=== PATIENT | female | born 1970 | race African-American/Black ===

== ENCOUNTER 2016-12-02 10:44 | Emergency (ER) | payer OTHER ==
[2016-12-02 11:10] VITALS: BP 131/70; PULSE 71; TEMP 98.3; BMI 25.5
[2016-12-02] MEDS ORDERED: ACETAMINOPHEN 325 MG TABLET (FP) PO ONE (11:37)
[2016-12-02] MEDS ORDERED: ACETAMINOPHEN 325 MG TABLET (FP) ONE (11:42)
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
== END 2016-12-02 13:09 | disposition home or self-care (01) ==
LOC: JERFT 10:44
DX: S16.1XXA Strain of muscle, fascia and tendon at neck level, initial encounter (principal); I10 Essential (primary) hypertension; V44.6XXA Car passenger injured in collision with heavy transport vehicle or bus in traffic accident, initial encounter; Y92.414 Local residential or business street as the place of occurrence of the external cause; Y93.89 Activity, other specified
CPT/HCPCS: 72050-TC; 84703; 99281-25

== ENCOUNTER 2017-02-16 08:57 | Day surgery (SDC) | payer OTHER ==
[2017-02-14 10:49] VITALS: BMI 26.6
[2017-02-16] MEDS ORDERED: LIDOCAINE HCL 1%, 10 MG/ML (20ML VIAL) ONE (09:39)
[2017-02-16] MEDS ORDERED: HEPARIN NA (PORCINE) 5,000 UNITS/ML 1ML VIAL ONE ×2 (09:39→10:38)
[2017-02-16] MEDS ORDERED: ONDANSETRON 4 MG/2 ML VIAL IVPUSH PRN (09:53)
[2017-02-16] MEDS ORDERED: oxyCODONE HCL 5 MG TABLET PO PRN (09:53)
[2017-02-16] MEDS ORDERED: MIDAZOLAM HCL 2 MG/2 ML SINGLE DOSE VIAL ONE ×2 (10:22)
[2017-02-16] MEDS ORDERED: ceFAZolin SODIUM 1 GM VIAL IVPB ONE (10:30)
[2017-02-16] MEDS ORDERED: ceFAZolin SODIUM 1 GM VIAL ONE (10:31)
[2017-02-16] MEDS ORDERED: LIDOCAINE HCL 1%, 10 MG/ML (50 mL VIAL) IJ ONE (10:35)
[2017-02-16] MEDS ORDERED: LIDOCAINE HCL 1%, 10 MG/ML (50 mL VIAL) INF ONE (10:35)
[2017-02-16] MEDS ORDERED: DEXAMETHASONE SOD PHOSPHATE 4 MG/1 ML VIAL ONE (10:41)
--- NOTE | 2017-02-16 10:56 | OP ---
Operative Note - Note: Operative Date: 02/16/17 Pre-Operative Diagnosis: stenosis right avf Operation: venogram,venoplasty right avf Findings: stenosis 70% in body of avf Post-Operative Diagnosis: Same as Pre-op Surgeon: Tanner Donaldson Anesthesia: Fractional Estimated Blood Loss (mls): 10 Operative Report Dictated: Yes
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
[2017-02-16 12:55] VITALS: PULSE 63; TEMP 97.6
[2017-02-16 15:56] VITALS: BP 90/60
--- NOTE | 2017-02-17 10:58 | OP ---
DATE OF OPERATION: 02/16/2017 PREOPERATIVE DIAGNOSIS: Stenosis, right arteriovenous fistula. POSTOPERATIVE DIAGNOSIS: Stenosis, right arteriovenous fistula. PROCEDURE: Venogram venoplasty of right arteriovenous fistula. SURGEON: Tanner Mosley MD ANESTHESIA: Fractional. BLOOD LOSS: 20 mL. INDICATIONS: The patient is a 42-year-old female who has a right AV fistula with a stenosis on preoperative ultrasound. It was decided that she would need a venogram. She came into ambulatory surgery. Patient was consented for the procedure understanding all risks, benefits, and alternatives, and then taken to the operating room. DESCRIPTION OF PROCEDURE: Once in the operating room, the area of the right arm was prepped and draped in a sterile surgical manner. We then injected 5 mL of lidocaine 1% at the proximal AV fistula above the anastomosis. We then took our micropuncture needle and punctured the right AV fistula. Micropuncture wire was inserted, and a traditional short 6-Macedonian sheath was inserted. Then, 3000 units of IV heparin were administered to the patient. We then shot a venogram by hand injection showing that the fistula was completely patent, but in the body of the fistula, there was about a 70% to 75% stenosis. We then placed a 0.035-floppy guidewire up into the central veins. We then used a 9 x 8 [place] balloon and performed venoplasty of the entire AV fistula from the upper arm all the way down to the anastomosis. Completion venogram showed that the fistula was now patent, there was good brisk flow, the central veins were patent, as well. At this point, we took a 4-0 Biosyn stitch and a figure-of-8 stitch was placed around our sheath, and the sheath was pulled. The area was wet and dried. A Dermabond was placed. The patient tolerated the procedure with no complications. Patient transferred to PACU in stable condition. TANNER MOSELY DO [id number]
== END 2017-02-16 14:00 | disposition home or self-care (01) ==
LOC: JASU-SURG 08:57
PROVIDERS: ATTEND Surgery Vascular Surgery
PROC: 057Y3ZZ Dilation of Upper Vein, Percutaneous Approach (ICD-10-PCS; principal; 2017-02-16 10:00)
DX: T82.858A Stenosis of other vascular prosthetic devices, implants and grafts, initial encounter (principal); I12.0 Hypertensive chronic kidney disease with stage 5 chronic kidney disease or end stage renal disease; N18.6 End stage renal disease
CPT/HCPCS: 36415; 76000-TC; 84132; 94760; J1644

== ENCOUNTER 2017-12-13 07:58 | Emergency (ER) | payer OTHER ==
[2017-12-13 08:17] VITALS: BP 150/75; PULSE 77; TEMP 98.4; BMI 27.3
--- NOTE | 2017-12-13 08:52 | PDOC ---
History of Present Illness - General Chief Complaint: Pain Stated Complaint: LT FOOT PAIN Time Seen by Provider: 12/13/17 08:43 History Source: Patient Exam Limitations: No Limitations - History of Present Illness Initial Comments: 12/13/17 09:55 Best Contact: PCP: Dr. Shannon Samaniego Pmhx: CRF/Gout Pshx: 2017/Right AV shunt, 2016/Uterus ablation, 2004: Laparoscopic cholecystectomy Allergies:NKDA LMP: None /ablation done 2016 47-year-old female presents to the ER complaining of pain to the plantar surface of her left foot. Patient states the pain is from her heel to her toes and is worse on weight-bear and alleviated minimally at rest. Patient states she noticed the pain for the past 3 days and has been taking Tylenol with minimal relief. Patient denies any injuries/trauma. Patient denies numbness or tingling sensation. Patient denies any other complaints. Past History - Past Medical History Allergies/Adverse Reactions: Allergies Allergy/AdvReac Type Severity Reaction Status Date / Time No Known Drug Allergies Allergy Verified 12/13/17 08:02 Home Medications: Ambulatory Orders Febuxostat [Uloric -] 80 mg PO HS 12/08/12 Magnesium Oxide 400 mg PO HS 12/08/12 Valsartan/Hydrochlorothiazide [Valsartan-Hctz 160-12.5 mg Tab] 1 each PO HS Anemia: Yes Asthma: Yes Cancer: No Cardiac Disorders: No CVA: No COPD: No CHF: No Dementia: No Diabetes: No Dialysis: No (pre dialysis, rt arm fistula, ckd , uromodulin storage disease) GI Disorders: Yes Disorders: No HTN: Yes Hypercholesterolemia: No Liver Disease: No Seizures: No Thyroid Disease: No - Surgical History Abdominal Surgery: Yes (uterine ablation) Appendectomy: No Cardiac Surgery: No Cholecystectomy: Yes Lung Surgery: No Neurologic Surgery: No Orthopedic Surgery: No - Suicide/Smoking/Psychosocial Hx Smoking Status: No Smoking History: Never smoked Have you smoked in the past 12 months: No Number of Cigarettes Smoked Daily: 0 Information on smoking cessation initiated: No Hx Alcohol Use: Yes (occas) Drug/Substance Use Hx: No Substance Use Type: None Hx Substance Use Treatment: No Review of Systems - Review of Systems Able to Perform ROS?: Yes Comments:: 12/13/17 09:57 CONSTITUTIONAL: Absent: fever, chills, diaphoresis, generalized weakness, malaise, loss of appetite Musculoskeletal: +pain to plantar surface of left foot Absent: myalgia, arthralgia, joint swelling SKIN: Absent: rash, itching, pallor HEMATOLOGIC/IMMUNOLOGIC: Absent: easy bleeding, easy bruising, lymphadenopathy, frequent infections ENDOCRINE: Absent: unexplained weight gain, unexplained weight loss, heat intolerance, cold intolerance Is the patient limited Swedish proficient: No *Physical Exam - Vital Signs Last Vital Signs Temp Pulse Resp BP Pulse Ox 98.4 F 77 18 150/75 100 12/13/17 08:03 12/13/17 08:03 12/13/17 08:03 12/13/17 08:03 12/13/17 08:03 - Physical Exam Comments: 12/13/17 09:58 GENERAL: Well developed, well nourished. Awake and alert. No acute distress. MUSCULOSKELETAL +left foot/pain to plantar surface 2 point sensation intact Normal range of motion at all joints. No bony deformities or tenderness. No CVA tenderness. EXTREMITIES: No cyanosis. No clubbing. No edema. No calf tenderness. SKIN: Warm and dry. Normal capillary refill. No rashes. No jaundice. Moderate Sedation - Procedure Monitoring Vital Signs: Vital Signs Temp Pulse Resp BP Pulse Ox 98.4 F 77 18 150/75 100 12/13/17 08:03 12/13/17 08:03 12/13/17 08:03 12/13/17 08:03 12/13/17 08:03 ED Treatment Course - RADIOLOGY Radiograph Interpretation: 12/13/17 09:59 xray left foot Negative obvious acute fracture or dislocation ? Osteophyte versus old fx to lat cuboid *DC/Admit/Observation/Transfer Diagnosis at time of Disposition: Plantar fasciitis of left foot - Discharge Dispostion Disposition: HOME Condition at time of disposition: Stable Decision to Admit order: No - Referrals Referrals: Chely Coleman MD [Staff Physician] - - Patient Instructions Printed Discharge Instructions: DI for Plantar Fasciitis Additional Instructions: Rest Elevate Follow up with the car rental deliverer Return to the ER for severe/persistent/worsening symptoms, extremity numbness/ tingling sensation. - Post Discharge Activity
== END 2017-12-13 09:42 | disposition home or self-care (01) ==
LOC: JER 07:58 → JERFT 07:58
DX: M72.2 Plantar fascial fibromatosis (principal); I12.0 Hypertensive chronic kidney disease with stage 5 chronic kidney disease or end stage renal disease; N18.6 End stage renal disease; J45.909 Unspecified asthma, uncomplicated; D64.9 Anemia, unspecified; Z95.828 Presence of other vascular implants and grafts
CPT/HCPCS: 73630-TC-LT; 99281-25

== ENCOUNTER 2018-04-30 12:59 | Emergency (ER) | payer OTHER ==
[2018-04-30 13:15] VITALS: BP 168/88; PULSE 78; TEMP 98.9; BMI 27.3
--- NOTE | 2018-04-30 13:32 | PDOC ---
History of Present Illness - General Chief Complaint: Pain Stated Complaint: ABSCESS Time Seen by Provider: 04/30/18 13:19 History Source: Patient Exam Limitations: No Limitations - History of Present Illness Initial Comments: CHIEF COMPLAINT: 47 y/o afebrile female with dental abscess that started yesterday. HISTORY OF PRESENT ILLNESS: patient states she has pain in her right upper mouth and swelling to right cheek. She denies fever. She has not seen a dentist in a long time. Vital signs on arrival are within normal limits. REVIEW OF SYSTEMS: GENERAL/CONSTITUTIONAL: No fever/chills. No weakness. No weight change. HEAD, EYES, EARS, NOSE AND THROAT: +painful tooth to right upper mouth and swelling to right side of face. No change in vision. No ear pain or discharge. No sore throat. MUSCULOSKELETAL: No joint or muscle swelling or pain. No neck or back pain. SKIN: No rash or easy bruising. NEUROLOGIC: No headache, vertigo, loss of consciousness, or loss of sensation. PHYSICAL EXAM: GENERAL: The patient is awake, alert, and fully oriented, in no acute distress. SHe is well appearing and ambulatory. HEAD: Normal with no signs of trauma. No mastoid TTP b/l. ENT: Pupils equal, round and reactive to light, extraocular movements intact, sclera anicteric, conjunctiva clear. Right upper 2nd molar very TTP with decay and surrounding gingivitis. Right side of cheek edematous but without erythema , warmth or streaking. No swelling to orbits or nose. EXTREMITIES: Normal range of motion, no edema. NEUROLOGICAL: Normal speech, normal gait. CN II-XII grossly intact. SKIN: Warm, dry, normal turgor, no rashes or lesions noted. Past History - Past Medical History Allergies/Adverse Reactions: Allergies Allergy/AdvReac Type Severity Reaction Status Date / Time No Known Drug Allergies Allergy Verified 04/30/18 13:15 Home Medications: Ambulatory Orders Febuxostat [Uloric -] 80 mg PO HS 12/08/12 Magnesium Oxide 400 mg PO HS 12/08/12 Valsartan/Hydrochlorothiazide [Valsartan-Hctz 160-12.5 mg Tab] 1 each PO HS Amoxicillin - [Amoxicillin 500mg Capsule -] 500 mg PO TID #21 capsule 10/07/18 Tramadol HCl 50 mg PO TID #12 tablet MDD 3 04/30/18 Anemia: Yes Asthma: Yes Cancer: No Cardiac Disorders: No CVA: No COPD: No CHF: No Dementia: No Diabetes: No Dialysis: Yes GI Disorders: Yes Disorders: No HTN: Yes Hypercholesterolemia: No Liver Disease: No Seizures: No Thyroid Disease: No - Surgical History Abdominal Surgery: No Appendectomy: No Cardiac Surgery: No Cholecystectomy: Yes Lung Surgery: No Neurologic Surgery: No Orthopedic Surgery: No - Suicide/Smoking/Psychosocial Hx Smoking Status: No Smoking History: Never smoked Have you smoked in the past 12 months: No Number of Cigarettes Smoked Daily: 0 Information on smoking cessation initiated: No Hx Alcohol Use: No Drug/Substance Use Hx: No Substance Use Type: Alcohol Hx Substance Use Treatment: No *Physical Exam - Vital Signs Last Vital Signs Temp Pulse Resp BP Pulse Ox 98.9 F 78 17 168/88 100 04/30/18 13:11 04/30/18 13:11 04/30/18 13:11 04/30/18 13:11 04/30/18 13:11 Medical Decision Making - Medical Decision Making A/P: 47 y/o female with an infected tooth in the right upper mouth with facial swelling. Will d/c with rx for amox and tramadol. Strongly encouraged her to f/u with the Urgent Care dentist in [place] today and return to the ER with any worsening or concerning symptoms. The patient verbalizes understanding of all instructions, has no further questions and is awaiting discharge. *DC/Admit/Observation/Transfer Diagnosis at time of Disposition: Dental abscess - Discharge Dispostion Disposition: HOME Condition at time of disposition: Good - Referrals - Patient Instructions Printed Discharge Instructions: DI for Tooth Decay Additional Instructions: Discharge Instructions: -you have a tooth abscess -A prescription for antibiotics and pain medication has been sent to your pharmacy -Please [facility] the [facility] [address] [place] [address] -Return to the ER with any worsening or concerning symptoms - Post Discharge Activity
[2018-04-30] MEDS ORDERED: AMOXICILLIN 500 MG CAPSULE (FP) PO ONE (13:38)
[2018-04-30] MEDS ORDERED: traMADol HCL 50 MG TABLET PO ONE (13:38)
[2018-04-30] MEDS ORDERED: AMOXICILLIN 250 MG CAPSULE ONE (13:41)
[2018-04-30] MEDS ORDERED: traMADol HCL 50 MG TABLET ONE (13:41)
== END 2018-04-30 13:44 | disposition home or self-care (01) ==
LOC: JERFT 12:59
DX: K04.7 Periapical abscess without sinus (principal); I12.0 Hypertensive chronic kidney disease with stage 5 chronic kidney disease or end stage renal disease; N18.6 End stage renal disease; N17.8 Other acute kidney failure; Z99.2 Dependence on renal dialysis; Z87.09 Personal history of other diseases of the respiratory system; Z86.2 Personal history of diseases of the blood and blood-forming organs and certain disorders involving the immune mechanism
CPT/HCPCS: 99281-25

== ENCOUNTER 2021-02-24 00:18 | Emergency (ER) | payer OTHER ==
[2021-02-24 00:49] VITALS: TEMP 98.2; BMI 29.0
[2021-02-24 02:19] VITALS: BP 122/89; PULSE 75
== END 2021-02-24 02:15 | disposition home or self-care (01) ==
LOC: JER 00:18
DX: M25.571 Pain in right ankle and joints of right foot (principal); Y93.01 Activity, walking, marching and hiking; M76.61 Achilles tendinitis, right leg
CPT/HCPCS: 73610-TC-RT-FY; 73630-TC-RT-FY; 99283-25; G0463-25

== ENCOUNTER 2021-03-10 20:51 | Emergency (ER) | payer OTHER ==
[2021-03-10 20:57] VITALS: BP 161/94; PULSE 87; TEMP 98.2; BMI 31.0
== END 2021-03-10 22:15 | disposition home or self-care (01) ==
LOC: JERFT 20:51
PROC: 0HQFXZZ Repair Right Hand Skin, External Approach (ICD-10-PCS; principal; 2021-03-10)
DX: S61.216A Laceration without foreign body of right little finger without damage to nail, initial encounter (principal); W26.0XXA Contact with knife, initial encounter
CPT/HCPCS: 99282-25

== ENCOUNTER 2022-08-04 09:04 | Inpatient (IN) | payer OTHER ==
[2022-08-04] MEDS ORDERED: LACTATED RINGERS SOLUTION 1,000 ML/1,000 ML INFUS.BAG IV STA (10:32)
[2022-08-04] MEDS ORDERED: METOCLOPRAMIDE HCL INJECTION 10 MG/2 ML VIAL IVPUSH ONE (10:32)
[2022-08-04] MEDS ORDERED: morphine CARPU-JECT 4 MG/1 ML DISP.SYRIN IVPUSH ONE (10:33)
[2022-08-04] MEDS ORDERED: METOCLOPRAMIDE HCL INJECTION 10 MG/2 ML VIAL ONE (10:44)
[2022-08-04] MEDS ORDERED: morphine SULFATE 4 MG/ML VIAL ONE (10:44)
[2022-08-04 11:37] LABS: BASO % 0.8 % (0-2.0); EOS % 0.8 % (0-4.5); HEMATOCRIT 34.9 % (32.4-45.2); HEMOGLOBIN 11.4 GM/dL (10.7-15.3); LYMPH % 4.5 % (8-40); MCH 30.5 pg (25.7-33.7); MCHC 32.6 g/dl (32.0-36.0); MEAN CELL VOLUME 93.6 fl (80-96); MEAN PLT VOLUME 8.7 fl (7.5-11.1); MONO % 4.3 % (3.8-10.2); NEUT % 89.6 % (42.8-82.8); PLATELET COUNT 265 10^3/uL (134-434); RBC 3.73 M/mm3 (3.60-5.2); RDW 13.4 % (11.6-15.6)
[2022-08-04 12:11] LABS: CALCIUM 9.5 mg/dL (8.5-10.1)
[2022-08-04 12:12] LABS: ALBUMIN 3.8 g/dl (3.4-5.0); BLOOD UREA NITROGEN 27.7 mg/dL (7-18); MAGNESIUM 1.5 mg/dL (1.8-2.4)
[2022-08-04 12:15] LABS: CREATININE 1.3 mg/dL (0.55-1.3); PHOSPHOROUS 1.8 mg/dL (2.5-4.9)
[2022-08-04] MEDS ORDERED: MAGNESIUM SULF 50% (8.12 MEQ/2 ML-1 GM VIAL) IVPB ONE ×2 (12:15→12:26)
[2022-08-04 12:16] LABS: BILIRUBIN,TOTAL 0.6 mg/dL (0.2-1); TOT PROT 7.1 g/dl (6.4-8.2)
[2022-08-04] MEDS ORDERED: MAGNESIUM 1GM/D5W - 1 GM/100 ML IVPB IVPB ONE ×2 (13:22→14:47)
[2022-08-04] MEDS ORDERED: LACTATED RINGERS SOLUTION 1,000 ML/1,000 ML INFUS.BAG IV ONE (13:30)
[2022-08-04] MEDS ORDERED: ACETAMINOPHEN 1000 MG/100 ML BAG IVPB PRN (15:01)
[2022-08-04 18:45] LABS: EPI CELLS >36 /uL (0-25.1); HYALINE CASTS 1 /uL (0-3.1); PH,URINE 6.5 (5.0-8.0); URINE APPEARANCE CLEAR; URINE BACTERIA 307 /uL (0-1359); URINE BILIRUBIN NEGATIVE (NEGATIVE); URINE COLOR YELLOW; URINE GLUCOSE (UA) NEGATIVE (NEGATIVE); URINE KETONE NEGATIVE (NEGATIVE); URINE LEUK ESTERASE NEGATIVE (NEGATIVE); URINE NITRITE NEGATIVE (NEGATIVE); URINE PROTEIN 1+ (NEGATIVE); URINE UROBILINOGEN 0.2 mg/dL (0.2-1.0)
[2022-08-04] MEDS ORDERED: DEXAMETHASONE SOD PHOSPHATE 4 MG/1 ML VIAL ONE (19:11)
[2022-08-04 19:18] LABS: URINE RBC 0 /uL (0-23.9)
[2022-08-04] MEDS: DEXAMETHASONE SOD PHOSPHATE 4 MG/1 ML VIAL IVPUSH SCH (19:20)
[2022-08-04] MEDS ORDERED: HEPARIN NA (PORCINE) 5,000 UNITS/ML 1ML VIAL ONE (23:42)
[2022-08-04] MEDS ORDERED: FAMOTIDINE 20 MG TABLET ONE (23:42)
[2022-08-05] MEDS: HEPARIN NA (PORCINE) 5,000 UNITS/ML 1ML VIAL SQ SCH ×5 (00:03→23:03)
[2022-08-05] MEDS: FAMOTIDINE 20 MG TABLET PO SCH ×3 (00:03→23:04)
[2022-08-05] MEDS: TACROLIMUS ANHYDROUS 1 MG CAPSULE PO SCH ×3 (00:03→23:03)
[2022-08-05 09:38] LABS: HEMATOCRIT 31.1 % (32.4-45.2); HEMOGLOBIN 10.3 GM/dL (10.7-15.3); WHITE BLOOD COUNT 3.9 K/mm3 (4.0-10.0)
[2022-08-05 09:39] LABS: BASO % 0.5 % (0-2.0); LYMPH % 19.6 % (8-40); MCH 31.3 pg (25.7-33.7); MCHC 33.2 g/dl (32.0-36.0); MEAN CELL VOLUME 94.2 fl (80-96); MEAN PLT VOLUME 8.2 fl (7.5-11.1); MONO % 8.1 % (3.8-10.2); NEUT % 70.8 % (42.8-82.8); PLATELET COUNT 224 10^3/uL (134-434); RDW 13.5 % (11.6-15.6)
[2022-08-05 09:40] VITALS: RESP 18
[2022-08-05 10:01] LABS: ALBUMIN 3.3 g/dl (3.4-5.0); MAGNESIUM 1.9 mg/dL (1.8-2.4)
[2022-08-05 10:03] LABS: PHOSPHOROUS 1.9 mg/dL (2.5-4.9)
[2022-08-05 10:04] LABS: CREATININE 1.2 mg/dL (0.55-1.3)
[2022-08-05 10:05] LABS: BILIRUBIN,TOTAL 0.5 mg/dL (0.2-1); TOT PROT 6.4 g/dl (6.4-8.2)
[2022-08-05] MEDS: DEXAMETHASONE SOD PHOSPHATE 4 MG/1 ML VIAL IVPUSH SCH (11:25)
[2022-08-05] MEDS ORDERED: DEXAMETHASONE SOD PHOSPHATE 4 MG/1 ML VIAL ONE (11:27)
[2022-08-05] MEDS ORDERED: FAMOTIDINE 20 MG TABLET ONE (11:27)
[2022-08-05 13:17] VITALS: BMI 32.7
[2022-08-05] MEDS: MYCOPHENOLATE MOFETIL 500 MG TABLET PO SCH ×2 (13:38→23:04)
[2022-08-05] MEDS: DEXTROSE 5%-NORMAL SALINE 1,000 ML IV SCH (14:06)
[2022-08-06] MEDS: HEPARIN NA (PORCINE) 5,000 UNITS/ML 1ML VIAL SQ SCH ×2 (05:09→14:04)
[2022-08-06] MEDS: MYCOPHENOLATE MOFETIL 500 MG TABLET PO SCH (09:53)
[2022-08-06] MEDS: FAMOTIDINE 20 MG TABLET PO SCH (09:53)
[2022-08-06] MEDS: TACROLIMUS ANHYDROUS 1 MG CAPSULE PO SCH (09:53)
[2022-08-06] MEDS: DEXAMETHASONE SOD PHOSPHATE 4 MG/1 ML VIAL IVPUSH SCH (09:54)
[2022-08-06 10:10] LABS: BASO % 1.5 % (0-2.0); EOS % 2.2 % (0-4.5); HEMOGLOBIN 10.2 GM/dL (10.7-15.3); LYMPH % 27.1 % (8-40); MCH 30.9 pg (25.7-33.7); MEAN CELL VOLUME 93.9 fl (80-96); MEAN PLT VOLUME 8.3 fl (7.5-11.1); MONO % 13.4 % (3.8-10.2); NEUT % 55.8 % (42.8-82.8); PLATELET COUNT 240 10^3/uL (134-434); RDW 13.7 % (11.6-15.6)
[2022-08-06 10:33] LABS: CALCIUM 9.2 mg/dL (8.5-10.1)
[2022-08-06 10:34] LABS: ALBUMIN 3.4 g/dl (3.4-5.0); BLOOD UREA NITROGEN 15.9 mg/dL (7-18)
[2022-08-06 10:37] LABS: CREATININE 1.2 mg/dL (0.55-1.3)
[2022-08-06 10:38] LABS: BILIRUBIN,TOTAL 0.6 mg/dL (0.2-1)
[2022-08-06 10:39] LABS: TOT PROT 6.3 g/dl (6.4-8.2)
[2022-08-06 15:33] VITALS: BP 137/77; PULSE 84; TEMP 98
== END 2022-08-06 16:40 | disposition home or self-care (01) | DRG 389 ==
LOC: JER 09:04 → JERBED 15:30 → J7W 08-05 11:51
PROVIDERS: ADMIT Internal Medicine; ATTEND Internal Medicine
DX: K56.7 Ileus, unspecified (principal); Z94.0 Kidney transplant status; M10.9 Gout, unspecified; N28.89 Other specified disorders of kidney and ureter; I12.9 Hypertensive chronic kidney disease with stage 1 through stage 4 chronic kidney disease, or unspecified chronic kidney disease; N18.9 Chronic kidney disease, unspecified; E78.5 Hyperlipidemia, unspecified; R19.7 Diarrhea, unspecified
CPT/HCPCS: 0241U-QW; 36415; 71045-TC-FY; 74176-TC; 74190-TC-FY; 80053; 80197; 81003; 83690; 83735; 84100; 85025; 93005; 93010; 99285-25; J1644; J7517